=== PATIENT | female | born 1995 | race Caucasian/White ===

== ENCOUNTER 2017-09-12 18:25 | Emergency (ER) | payer OTHER ==
--- NOTE | 2017-09-12 18:37 | ER Report ---
History and Physical Time Seen By MD: 18:36 Hx. of Stated Complaint: PT WENT OFF A SKI JUMP AND LANDED ON R WRIST, DEFORMITY PAIN AND SWELLING HPI/ROS CHIEF COMPLAINT: wrist injury HISTORY OF PRESENT ILLNESS: This is a 21 year old female. She is having pain from injury to the left wrist while skiing today. She went off of a jump and landed on her left wrist. Swelling, pain and deformity over distal radius area. Has increased pain with moving fingers. Can still feel fingers and hand. No laceration or abrasion. Allergies: Coded Allergies: No Known Drug Allergies (Unverified , 09/12/17) Home Meds Active Scripts Hydrocodone Bit/Acetaminophen (HYDROCODON-ACETAMINOPHEN 5-325) 1 Each Tablet, 1 EACH PO Q4H Y for PAIN, #12 TAB 0 Refills Prov:NELLY CRUZ MD 09/12/17 Reviewed Nurses Notes: Yes Hx Alcohol Use: Yes Constitutional Vital Sign - Last 24 Hours 09/12/17 09/12/17 18:32 20:43 Temp 98.1 Pulse 71 88 Resp 14 16 B/P (MAP) 120/89 102/68 (79) Pulse Ox 98 95 O2 Delivery Room Air Room Air Physical Exam General appearance: alert, no distress. Left wrist: There is asymmetry with significant swelling and deformity. No tenderness over the ulnar styloid. No tenderness over the metacarpals or hand. No pain in the proximal forearm. Neurologic exam: The patient has normal sensation distal to the injury. Active range of motion is intact, but with pain. Vascular exam: Normal pulses and capillary refill. Skin: No abrasion or laceration. DIFFERENTIAL DIAGNOSIS: After history and physical exam, differential diagnosis was considered for wrist injury including sprain, fracture, dislocation and soft tissue injury. Medical Decision Making EKG/Imaging Imaging EXAMINATION: Left wrist 3 views Left hand 3 views HISTORY: Skiing injury. Wrist and hand pain. COMPARISON: None. FINDINGS: Comminuted and displaced fracture of the distal left radius. There is a transverse component at the level of the closed physis, extending to the DRUJ which appears mildly widened. The distal radial fracture fragments are displaced in a posterior direction by up to 8 mm, with dorsal impaction and angulation. No definite fracture line along the articular surface at the radiocarpal joint. The distal left ulna appears intact. The carpal bones appear radiographically intact and maintain alignment with the distal radial fragment. Soft tissue swelling surrounds the left wrist. No evidence of additional fracture in the left hand on the dedicated hand views. Bones of the left hand otherwise demonstrate normal alignment. Joint spaces are preserved. Normal mineralization. IMPRESSION: 1. Comminuted and displaced fracture of the distal left radius, extending to the DRUJ. Distal radial fracture fragments are displaced posteriorly with dorsal impaction and angulation. 2. No other acute osseous findings in the left wrist or hand. Report Dictated By: Cecilio Marinelli MD at 09/12/2017 7:24 PM WRIST LEFT MIN 3 VIEW HISTORY: Post reduction distal radial fracture. COMPARISON: Earlier same day at 7:05 PM. TECHNIQUE: PA, oblique, and lateral views of the left wrist. FINDINGS: Splint material is now present. There has been improvement in alignment of the distal radial metaphyseal fracture. The ulnar tilting has resolved. The dorsal displacement now measures 1-2 mm, and there is 25 degree dorsal tilting of the distal fracture fragment, previously 35 degrees. IMPRESSION: 1. Interval improvement in alignment of the distal radial metaphyseal fracture. Report Dictated By: Madhuri Middleton at 09/12/2017 9:04 PM ED Course/Re-evaluation ED Course After initial evaluation, imaging obtained as noted above. Discussed options with the patient. Offered sedation with reduction versus hematoma block. She wanted to go ahead with the hematoma block as noted below. Good success. Not complete improvement of alignment after reduction attempt, but is improved. See instructions below. Procedure: Hematoma block A hematoma block was performed distal radius fracture, comminuted and displaced. The block was performed with lidocaine and bupivacaine without epinephrine. Sterile, with Betadine prep and no-touch technique. The patient experienced almost complete pain relief. The procedure was performed by myself. Procedure: Distal radius fracture reduction The wrist was reduced in the usual fashion without complications. Post reduction the patient's neurovascular exam is normal. Post reduction x-ray demonstrates reduction of the bones as noted above. The procedure was performed by myself. Procedure: Forearm sugar-tong half-cast placement. A half-cast/splint as noted above was applied. After application of the half- cast, I returned and re-examined the patient. The half-cast was adequately immobilizing the joint and distally the patient's circulation and sensation was intact. This was applied by myself. Decision to Disposition Date: Sep 12, 2017 Decision to Disposition Time: 20:18 Depart Departure Latest Vital Signs Vital Signs Date Time Temp Pulse Resp B/P (MAP) Pulse Ox O2 Delivery O2 Flow Rate FiO2 09/12/17 20:43 88 16 102/68 (79) 95 Room Air 09/12/17 18:32 98.1 Impression: Primary Impression: Distal radius fracture, left Condition: Improved Disposition: HOME OR SELF-CARE New Scripts Hydrocodone Bit/Acetaminophen (HYDROCODON-ACETAMINOPHEN 5-325) 1 Each Tablet 1 EACH PO Q4H Y for PAIN, #12 TAB 0 Refills Prov: NELLY CRUZ MD 09/12/17 Patient Instructions: Wrist Fracture in Adults (ED) Additional Instructions: Ibuprofen 200mg over the counter tablets, take 4 tablets three times a day with food. Lortab 5/325, one every 4 hours as needed for pain. Apply ice 20 minutes every 1-2 hours while awake. Rest the injured area, keep it elevated while at rest. Call [facility] tomorrow to schedule an appointment for them this week. Keep the splint in place until you see the orthopedic surgeon. You can loosen the CHRISTIN wrap holding the splint in place if it feels too tight. Problem Qualifiers Primary Impression: Distal radius fracture, left Encounter type: initial encounter Fracture type: closed Fracture morphology : Colles' Qualified Codes: S52.532A - Colles' fracture of left radius, initial encounter for closed fracture NELLY CRUZ MD Sep 12, 2017 18:37
--- NOTE | 2017-09-12 19:39 | RADIOLOGY IMAGING REPORT ---
FACILITY: [facility] [place] PATIENT NAME: Daija Tom : 1995 MR: [id number] V: [id number] EXAM DATE: ORDERING PHYSICIAN: NELLY CRUZ TECHNOLOGIST: Location: [facility] Patient: Daija Tom : 1995 Visit/Account:[id number] Date of Sevice: 09/12/2017 EXAMINATION: Left wrist 3 views Left hand 3 views HISTORY: Skiing injury. Wrist and hand pain. COMPARISON: None. FINDINGS: Comminuted and displaced fracture of the distal left radius. There is a transverse component at the l evel of the closed physis, extending to the DRUJ which appears mildly widened. The distal radial frac ture fragments are displaced in a posterior direction by up to 8 mm, with dorsal impaction and angula tion. No definite fracture line along the articular surface at the radiocarpal joint. The distal left ulna appears intact. The carpal bones appear radiographically intact and maintain ali gnment with the distal radial fragment. Soft tissue swelling surrounds the left wrist. No evidence of additional fracture in the left hand on the dedicated hand views. Bones of the left [place]yl[place] nd otherwise demonstrate normal alignment. Joint spaces are preserved. Normal mineralization. IMPRESSION: 1. Comminuted and displaced fracture of the distal left radius, extending to the DRUJ. Distal radial fracture fragments are displaced posteriorly with dorsal impaction and angulation. 2. No other acute osseous findings in the left wrist or hand. Report Dictated By: Cecilio Marinelli MD at 09/12/2017 7:24 PM Report E-Signed By: Cecilio Marinelli MD at 09/12/2017 7:35 PM WSN:[id number]
--- NOTE | 2017-09-12 19:39 | RADIOLOGY IMAGING REPORT ---
FACILITY: [facility] - [place] PATIENT NAME: Daija Tom : 1995 MR: [id number] V: [id number] EXAM DATE: ORDERING PHYSICIAN: NELLY CRUZ TECHNOLOGIST: Location: [facility] Patient: Daija Tom : 1995 Visit/Account:[id number] Date of Sevice: 09/12/2017 EXAMINATION: Left wrist 3 views Left hand 3 views HISTORY: Skiing injury. Wrist and hand pain. COMPARISON: None. FINDINGS: Comminuted and displaced fracture of the distal left radius. There is a transverse component at the l evel of the closed physis, extending to the DRUJ which appears mildly widened. The distal radial frac ture fragments are displaced in a posterior direction by up to 8 mm, with dorsal impaction and angula tion. No definite fracture line along the articular surface at the radiocarpal joint. The distal left ulna appears intact. The carpal bones appear radiographically intact and maintain ali gnment with the distal radial fragment. Soft tissue swelling surrounds the left wrist. No evidence of additional fracture in the left hand on the dedicated hand views. Bones of the left hyl[place] nd otherwise demonstrate normal alignment. Joint spaces are preserved. Normal mineralization. IMPRESSION: 1. Comminuted and displaced fracture of the distal left radius, extending to the DRUJ. Distal radial fracture fragments are displaced posteriorly with dorsal impaction and angulation. 2. No other acute osseous findings in the left wrist or hand. Report Dictated By: Cecilio Marinelli MD at 09/12/2017 7:24 PM Report E-Signed By: Cecilio Marinelli MD at 09/12/2017 7:35 PM WSN:[id number]
[2017-09-12] MEDS ORDERED: LOR5/325 PO (20:20)
[2017-09-12] MEDS ORDERED: IBUPROFEN 800 MG TAB PO ONE (20:20)
[2017-09-12] MEDS ORDERED: ACET/HYDROC 5/325MG TH ER ONLY 2 TAB/BOTTLE PO ONE (20:20)
[2017-09-12 20:43] VITALS: BP 102/68
--- NOTE | 2017-09-12 21:10 | RADIOLOGY IMAGING REPORT ---
FACILITY: [facility] PATIENT NAME: Daija Tom : 1995 MR: [id number] V: [id number] EXAM DATE: ORDERING PHYSICIAN: NELLY CRUZ TECHNOLOGIST: Location: [facility] Patient: Daija Tom : 1995 Visit/Account:[id number] Date of Sevice: 09/12/2017 WRIST LEFT MIN 3 VIEW HISTORY: Post reduction distal radial fracture. COMPARISON: Earlier same day at 7:05 PM. TECHNIQUE: PA, oblique, and lateral views of the left wrist. FINDINGS: Splint material is now present. There has been improvement in alignment of the distal radia l metaphyseal fracture. The ulnar tilting has resolved. The dorsal displacement now measures 1-2 mm, and there is 25 degree dorsal tilting of the distal fracture fragment, previously 35 degrees. IMPRESSION: 1. Interval improvement in alignment of the distal radial metaphyseal fracture. Report Dictated By: Madhuri Middleton at 09/12/2017 9:04 PM Report E-Signed By: Madhuri Middleton at 09/12/2017 9:06 PM WSN:[id number]
== END 2017-09-12 20:50 | disposition home or self-care (01) ==
LOC: ER 18:35
DX: S52.532A Colles' fracture of left radius, initial encounter for closed fracture (principal); W00.0XXA Fall on same level due to ice and snow, initial encounter; Y93.23 Activity, snow (alpine) (downhill) skiing, snowboarding, sledding, tobogganing and snow tubing
CPT/HCPCS: 25605; 73110; 73130; 99283; A4565